=== PATIENT | female | born 1965 | race Caucasian/White ===

== ENCOUNTER → 2020-04-09 | Outpatient (CLI) | payer OTHER ==
[~2020-04-09] MED LIST: APIX5TAB PO; CHOL10003 PO; CYAN-27 PO; LISI-167 PO; LORA-446 PO; QUET100T4 PO
[2020-04-09 16:00] LABS: ALANINE AMINOTRANSFERASE 15 U/L (12-78); ALBUMIN 3.9 g/dL (3.4-5.0); ANION GAP 6 mmol/L (5-15); CALCIUM 9.2 mg/dL (8.5-10.1); CHLORIDE 105 mmol/L (98-107)
[2020-04-09 16:03] LABS: ALKALINE PHOSPHATASE 95 U/L (45-117); CREATININE 1.09 mg/dL (0.55-1.02); TOTAL PROTEIN 7.5 g/dL (6.4-8.2)
== END | disposition home or self-care (01) ==
LOC: MERGE 14:36 → STAR 14:36
PROVIDERS: ATTEND Internal Medicine Geriatric Medicine
DX: Z01.812 Encounter for preprocedural laboratory examination (principal); Z20.828 Contact with and (suspected) exposure to other viral communicable diseases; R94.5 Abnormal results of liver function studies
CPT/HCPCS: 80053; 87635

== ENCOUNTER 2020-04-15 06:39 | Day surgery (SDC) | payer OTHER ==
[~2020-04-15] VITALS: Ht 165.1 cm; Wt 54.0 kg
[2020-04-15] MEDS ORDERED: CHLORHEXIDINE 15 ML UDC MM STA (07:04)
[2020-04-15] MEDS ORDERED: CHLORHEXIDINE 15 ML UDC ONE (07:07)
[2020-04-15] MEDS ORDERED: LACTATED RINGERS 1,000 ML IV SCH (07:30)
[2020-04-15] MEDS ORDERED: PROPOFOL 10 MG/ML, 50ML ONE (09:11)
[2020-04-15] MEDS ORDERED: DIPHENHYDRAMINE 50 MG/ML, 1ML IVPush PRN (09:30)
[2020-04-15] MEDS ORDERED: FENTANYL PF 100 MCG/2ML IV PRN (09:30)
[2020-04-15] MEDS ORDERED: LABETALOL 5MG/ML, 20ML IV PRN (09:30)
[2020-04-15] MEDS ORDERED: EPHEDRINE 50 MG/ML, 1ML IVPush PRN (09:30)
[2020-04-15] MEDS ORDERED: ONDANSETRON 2MG/ML, 2ML IVPush PRN (09:30)
[2020-04-15] MEDS ORDERED: PROMETHAZINE 25 MG/ML, 1ML IVPush PRN (09:30)
== END 2020-04-15 11:05 | disposition home or self-care (01) ==
LOC: OUT 06:39 → MERGE 08:45 → OUT 11:05
PROVIDERS: ATTEND Internal Medicine Geriatric Medicine
DX: R93.3 Abnormal findings on diagnostic imaging of other parts of digestive tract (principal); F17.210 Nicotine dependence, cigarettes, uncomplicated; Z88.5 Allergy status to narcotic agent; Z88.8 Allergy status to other drugs, medicaments and biological substances; Z90.49 Acquired absence of other specified parts of digestive tract; Z90.710 Acquired absence of both cervix and uterus; Z98.890 Other specified postprocedural states; Z72.89 Other problems related to lifestyle; Z79.01 Long term (current) use of anticoagulants
CPT/HCPCS: 43259; J2704; J7120